=== PATIENT | male | born 1955 | race Caucasian/White ===

== ENCOUNTER 2019-05-21 13:16 | Emergency (ER) | payer OTHER ==
[~2019-05-21] VITALS: Ht 170.2 cm; Wt 75.0 kg
[2019-05-21] MEDS ORDERED: [UNRECOGNIZED DRUG - OTHER] PO (13:22)
[2019-05-21] MEDS ORDERED: KETOROLAC TROMETHAMINE 30 MG/ML VIAL IM ONE (14:45)
[2019-05-21 15:06] VITALS: BP 126/79
== END 2019-05-21 15:22 | disposition home or self-care (01) ==
LOC: EMS 13:18
DX: M62.838 Other muscle spasm (principal); M54.2 Cervicalgia; R51 Headache
CPT/HCPCS: 96372; 99283; J1885